=== PATIENT | male | born 1980 | race Caucasian/White ===

== ENCOUNTER 2019-12-02 11:49 | Emergency (ER) | payer BC ==
[2019-12-02] MEDS ORDERED: cefTRIAXone 250 MG in Lidocaine 1% 1 ML IM ONE (12:10)
--- NOTE | 2019-12-02 12:11 | EDM.PDOC ---
ED HPI GENERAL MEDICAL PROBLEM - General Stated Complaint: EXPOSURE Time Seen by Provider: 12/02/19 12:09 Source of Information: Reports: Patient History Limitations: Reports: No Limitations - History of Present Illness INITIAL COMMENTS - FREE TEXT/NARRATIVE: Family is called in by hospital for meningitis prophylaxis per recommendation of infectious disease doctor at [facility]. He has no other complaints. Family lost their son last night due to sepsis. Onset: Today Improves with: Reports: None Worsens with: Reports: None Associated Symptoms: Reports: No Other Symptoms ED ROS GENERAL - Review of Systems Review Of Systems: Comprehensive ROS is negative, except as noted in HPI. ED EXAM, GENERAL - Physical Exam Exam: See Below General Appearance: Alert Head: Atraumatic, Normocephalic Neck: Normal Inspection Respiratory/Chest: No Respiratory Distress Neurological: Alert Psychiatric: Depressed Mood Skin Exam: Normal Color Course - Orders/Labs/Meds Meds: Medications Discontinued Medications Generic Name Dose Route Start Last Admin Trade Name Freq PRN Reason Stop Dose Admin Ceftriaxone Sodium 250 mg/ 1 mls @ 1 mls/sec 12/02/19 12:10 Lidocaine HCl IM 12/02/19 12:11 ONETIME ONE - Re-Assessments/Exams Free Text/Narrative Re-Assessment/Exam: 12/02/19 12:26 Patient given a shot of Rocephin 125 mg IM. Departure - Departure Time of Disposition: 12:27 Disposition: Home, Self-Care 01 Condition: Good Clinical Impression: Meningitis contact - Discharge Information Referrals: PCP,Unobtain [Primary Care Provider] - Forms: ED Department Discharge Sepsis Event Note - Focused Exam Date Exam was Performed: 12/02/19 Time Exam was Performed: 12:25
== END 2019-12-02 12:58 | disposition home or self-care (01) ==
LOC: MW.ED 11:49
DX: Z20.811 Contact with and (suspected) exposure to meningococcus (principal)
CPT/HCPCS: 96372; 99283; J0696; J2001; 99282

== ENCOUNTER 2020-08-16 17:41 | Observation (INO) | payer BC, OTHER ==
[2020-08-16] MEDS ORDERED: Sodium Chloride 0.9% 1,000 ML IV ONE (18:00)
--- NOTE | 2020-08-16 18:15 | EDM.PDOC ---
ED HPI GENERAL MEDICAL PROBLEM - General Chief Complaint: Fever Stated Complaint: FEVER NOT BREAKING Time Seen by Provider: 08/16/20 17:53 Source of Information: Reports: Patient History Limitations: Reports: No Limitations - History of Present Illness INITIAL COMMENTS - FREE TEXT/NARRATIVE: HISTORY AND PHYSICAL: History of present illness: Patient is a 40-year-old male who presents to the ED today with concern of fever over the last 5 days and general body aches, and states that he felt like he was weak before coming to the ED. patient states his T-max today was 102.5 and states he has since taken ibuprofen. Patient states that he has taken 800 mg of ibuprofen a few hours ago and has not been able to get his fever down. Other than a fever and generalized body aches, patient denies any associated symptoms. Patient states that today he has felt weak and tired. Patient denies any health history. Patient denies chest pain, shortness of breath, or cough. Denies headache, neck stiff ness, change in vision, syncope, or near syncope. Denies nausea, vomiting, abdominal pain, diarrhea, constipation, or dysuria. Has not noted any blood in urine or stool. Patient has been eating and drinking appropriately. Review of systems: As per history of present illness and below otherwise all systems reviewed and negative. Past medical history: As per history of present illness and as reviewed below otherwise noncontributory. Surgical history: As per history of present illness and as reviewed below otherwise noncontributory. Social history: See social history for further information Family history: As per history of present illness and as reviewed below otherwise noncontributory. Physical exam: General: Patient is alert, oriented, and in no acute distress. Patient sitting comfortably on exam table, tired appearing. HEENT: Atraumatic, normocephalic, pupils equal and reactive bilaterally, negative for conjunctival pallor or scleral icterus, mucous membranes moist, TMs normal bilaterally, throat clear, neck supple, nontender, trachea midline. No drooling or trismus noted. No meningeal signs. No hot potato voice noted. Lungs: Patient speaking clearly without breathlessness, no wheezing or stridor, no accessory muscle use or respiratory distress. Auscultation deferred due to current COV-ID 19 outbreak. Heart: Auscultation deferred due to current COV-ID 19 outbreak. Abdomen: Soft, nondistended Pelvis: Stable nontender. Genitourinary: Deferred. Rectal: Deferred. Skin: Intact, warm, dry. No lesions or rashes noted. Extremities: Atraumatic, negative for cords or calf pain. Neurovascular unremarkable. Neuro: Awake, alert, oriented. Cranial nerves II through XII unremarkable. Cerebellum unremarkable. Motor and sensory unremarkable throughout. Exam nonfocal. Notes: Discussed importance for follow-up with primary care provider. Signs and symptoms that would prompt return to the ED thoroughly discussed with patient. Voices understanding and is agreeable to plan of care. Denies any further questions or concerns at this time. Diagnostics: CBC, CMP, UA, EKG, CXR, Trop, COVID, influenza Therapeutics: NS Prescription: None Impression: Fever, unspecified Plan: 1. Continue to alternate ibuprofen and Tylenol as directed for fevers and discomfort. 2. Follow-up with a primary care provider as discussed. Return to the ED as needed and as discussed. Definitive disposition and diagnosis as appropriate pending reevaluation and review of above. - Related Data Allergies Allergy/AdvReac Type Severity Reaction Status Date / Time No Known Allergies Allergy Verified 08/16/20 17:54 Home Meds: Home Meds . [No Known Home Meds] 12/02/19 [History] Past Medical History - Past Health History Medical/Surgical History: Denies Medical/Surgical History HEENT History: Reports: None Cardiovascular History: Reports: None Respiratory History: Reports: None Gastrointestinal History: Reports: None Genitourinary History: Reports: None Neurological History: Reports: None Psychiatric History: Reports: None Endocrine/Metabolic History: Reports: None Hematologic History: Reports: None Immunologic History: Reports: None Oncologic (Cancer) History: Reports: None Dermatologic History: Reports: None - Infectious Disease History Infectious Disease History: Reports: Chicken Pox - Past Surgical History Head Surgeries/Procedures: Reports: None Musculoskeletal Surgical History: Reports: Other (See Below) Other Musculoskeletal Surgeries/Procedures:: Back Surgery Social & Family History - Family History Family Medical History: Noncontributory - Tobacco Use Smoking Status *Q: Never Smoker - Caffeine Use Caffeine Use: Reports: None - Recreational Drug Use Recreational Drug Use: No ED ROS GENERAL - Review of Systems Review Of Systems: Comprehensive ROS is negative, except as noted in HPI. ED EXAM, GENERAL - Physical Exam Exam: See Below (see dictation) Course - Vital Signs Last Recorded V/S: Last Vital Signs Temp 96.2 F L 08/16/20 17:54 Pulse 86 08/16/20 19:52 Resp 17 08/16/20 19:52 BP 115/84 08/16/20 19:52 Pulse Ox 96 08/16/20 19:52 - Orders/Labs/Meds Orders: Active Orders 24 hr Category Date Time Status EKG Documentation Completion [RC] STAT Care 08/16/20 18:03 Active CORONAVIRUS COVID-19 PCR PHL Stat Lab 08/16/20 18:30 Received CULTURE BLOOD [BC] Stat Lab 08/16/20 18:24 Received CULTURE BLOOD [BC] Stat Lab 08/16/20 19:10 Received Blood Culture x2 Reflex Set [OM.PC] Stat Oth 08/16/20 18:50 Ordered Isolation [COMM] Routine Oth 08/16/20 19:16 Active Labs: Laboratory Tests 08/16/20 08/16/20 08/16/20 Range/Units 18:24 18:24 18:30 WBC (4.0-11.0) K/uL RBC (4.50-5.90) M/uL Hgb (13.0-17.0) g/dL Hct (38.0-50.0) % MCV (80.0-98.0) fL MCH (27.0-32.0) pg MCHC (31.0-37.0) g/dL RDW Std Deviation (28.0-62.0) fl RDW Coeff of Jose Luis (11.0-15.0) % Plt Count (150-400) K/uL MPV (7.40-12.00) fL Neut % (Auto) (48.0-80.0) % Lymph % (Auto) (16.0-40.0) % Green % (Auto) (0.0-15.0) % Eos % (Auto) (0.0-7.0) % Baso % (Auto) (0.0-1.5) % Neut # (Auto) (1.4-5.7) K/uL Lymph # (Auto) (0.6-2.4) K/uL Green # (Auto) (0.0-0.8) K/uL Eos # (Auto) (0.0-0.7) K/uL Baso # (Auto) (0.0-0.1) K/uL Nucleated RBC % /100WBC Nucleated RBCs # K/uL Lactate 1.8 (0.20-2.00) mmol/L Sodium 137 (136-148) mmol/L Potassium 4.1 (3.5-5.1) mmol/L Chloride 102 (98-107) mmol/L Carbon Dioxide 26.1 (21.0-32.0) mmol/L BUN 10 (7.0-18.0) mg/dL Creatinine 1.3 (0.8-1.3) mg/dL Est Cr Clr Drug Dosing 82.91 mL/min Estimated GFR (MDRD) > 60.0 ml/min Glucose 128 H (74-106) mg/dL Calcium 8.6 (8.5-10.1) mg/dL Total Bilirubin 0.4 (0.2-1.0) mg/dL AST 65 H (15-37) IU/L ALT 146 H (14-63) IU/L Alkaline Phosphatase 86 (46-116) U/L Troponin I < 0.050 (0.000-0.056) ng/mL Total Protein 7.5 (6.4-8.2) g/dL Albumin 3.9 (3.4-5.0) g/dL Globulin 3.6 (2.6-4.0) g/dL Albumin/Globulin Ratio 1.1 (0.9-1.6) Urine Color Urine Appearance Urine pH (5.0-8.0) Ur Specific Linch (1.001-1.035) Urine Protein (NEGATIVE) mg/dL Urine Glucose (UA) (NEGATIVE) mg/dL Urine Ketones (NEGATIVE) mg/dL Urine Occult Blood (NEGATIVE) Urine Nitrite (NEGATIVE) Urine Bilirubin (NEGATIVE) Urine Ictotest Urine Urobilinogen (<2.0) EU/dL Ur Leukocyte Esterase (NEGATIVE) U Hyaline Cast (Auto) (0-2/LPF) Urine RBC (0-2/HPF) Urine WBC (0-5/HPF) Ur Epithelial Cells (NONE-FEW) Urine Bacteria (NEGATIVE) Fine Granular Casts (NEGATIVE) Urine Mucus (NONE-MOD) SARS CoV-2 RNA Rapid RIYA NEGATIVE (NEGATIVE) 08/16/20 08/16/20 Range/Units 18:43 19:40 WBC 5.30 (4.0-11.0) K/uL RBC 5.00 (4.50-5.90) M/uL Hgb 14.3 (13.0-17.0) g/dL Hct 41.3 (38.0-50.0) % MCV 82.6 (80.0-98.0) fL MCH 28.6 (27.0-32.0) pg MCHC 34.6 (31.0-37.0) g/dL RDW Std Deviation 36.3 (28.0-62.0) fl RDW Coeff of Jose Luis 12 (11.0-15.0) % Plt Count 184 (150-400) K/uL MPV 10.00 (7.40-12.00) fL Neut % (Auto) 64.1 (48.0-80.0) % Lymph % (Auto) 20.8 (16.0-40.0) % Green % (Auto) 14.9 (0.0-15.0) % Eos % (Auto) 0.2 (0.0-7.0) % Baso % (Auto) 0.0 (0.0-1.5) % Neut # (Auto) 3.4 (1.4-5.7) K/uL Lymph # (Auto) 1.1 (0.6-2.4) K/uL Green # (Auto) 0.8 (0.0-0.8) K/uL Eos # (Auto) 0.0 (0.0-0.7) K/uL Baso # (Auto) 0.0 (0.0-0.1) K/uL Nucleated RBC % 0.0 /100WBC Nucleated RBCs # 0 K/uL Lactate (0.20-2.00) mmol/L Sodium (136-148) mmol/L Potassium (3.5-5.1) mmol/L Chloride (98-107) mmol/L Carbon Dioxide (21.0-32.0) mmol/L BUN (7.0-18.0) mg/dL Creatinine (0.8-1.3) mg/dL Est Cr Clr Drug Dosing mL/min Estimated GFR (MDRD) ml/min Glucose (74-106) mg/dL Calcium (8.5-10.1) mg/dL Total Bilirubin (0.2-1.0) mg/dL AST (15-37) IU/L ALT (14-63) IU/L Alkaline Phosphatase (46-116) U/L Troponin I (0.000-0.056) ng/mL Total Protein (6.4-8.2) g/dL Albumin (3.4-5.0) g/dL Globulin (2.6-4.0) g/dL Albumin/Globulin Ratio (0.9-1.6) Urine Color DARK YELLOW Urine Appearance SLT CLOUDY Urine pH 6.0 (5.0-8.0) Ur Specific Linch >= 1.030 (1.001-1.035) Urine Protein 100 H (NEGATIVE) mg/dL Urine Glucose (UA) NEGATIVE (NEGATIVE) mg/dL Urine Ketones TRACE H (NEGATIVE) mg/dL Urine Occult Blood NEGATIVE (NEGATIVE) Urine Nitrite NEGATIVE (NEGATIVE) Urine Bilirubin SMALL H (NEGATIVE) Urine Ictotest NEGATIVE Urine Urobilinogen 1.0 (<2.0) EU/dL Ur Leukocyte Esterase NEGATIVE (NEGATIVE) U Hyaline Cast (Auto) 0-1 (0-2/LPF) Urine RBC 0-1 (0-2/HPF) Urine WBC 2-5 (0-5/HPF) Ur Epithelial Cells FEW (NONE-FEW) Urine Bacteria FEW (NEGATIVE) Fine Granular Casts 0-1 (NEGATIVE) Urine Mucus HEAVY (NONE-MOD) SARS CoV-2 RNA Rapid RIYA (NEGATIVE) Meds: Medications Discontinued Medications Generic Name Dose Route Start Last Admin Trade Name Christian PRN Reason Stop Dose Admin Sodium Chloride 1,000 mls @ 999 mls/hr 08/16/20 18:00 08/16/20 18:26 Normal Saline IV 08/16/20 19:00 999 mls/hr BOLUS ONE Administration Departure - Departure Time of Disposition: 20:38 Disposition: Home, Self-Care 01 Clinical Impression: Fever Qualifiers: Fever type: unspecified Qualified Code(s): R50.9 - Fever, unspecified - Discharge Information Referrals: Mp Trinh MD [Primary Care Provider] - Forms: ED Department Discharge Additional Instructions: The following information is given to patients seen in the emergency department who are being discharged to home. This information is to outline your options for follow-up care. We provide all patients seen in our emergency department with a follow-up referral. The need for follow-up, as well as the timing and circumstances, are variable depending upon the specifics of your emergency department visit. If you don't have a primary care physician on staff, we will provide you with a referral. We always advise you to contact your personal physician following an emergency department visit to inform them of the circumstance of the visit and for follow-up with them and/or the need for any referrals to a consulting specialist. The emergency department will also refer you to a specialist when appropriate. This referral assures that you have the opportunity for follow-up care with a specialist. All of these measure are taken in an effort to provide you with optimal care, which includes your follow-up. Under all circumstances we always encourage you to contact your private physician who remains a resource for coordinating your care. When calling for follow-up care, please make the office aware that this follow-up is from your recent emergency room visit. If for any reason you are refused follow-up, please contact the [facility] Emergency Department at and asked to speak to the emergency department charge nurse. [facility] [address] [place] [address] [id number] 1. Continue to alternate ibuprofen and Tylenol as directed for fevers and discomfort. 2. Follow-up with a primary care provider as discussed. Return to the ED as needed and as discussed. Sepsis Event Note (ED) - Evaluation Sepsis Screening Result: No Definite Risk - Focused Exam Vital Signs: Vital Signs Temp Pulse Resp BP Pulse Ox 08/16/20 19:52 86 17 115/84 96 08/16/20 17:54 96.2 F L 85 18 120/72 94 L - My Orders Last 24 Hours: My Active Orders 08/16/20 18:03 EKG Documentation Completion [RC] STAT 08/16/20 18:24 CULTURE BLOOD [BC] Stat 08/16/20 18:30 CORONAVIRUS COVID-19 PCR PHL Stat 08/16/20 18:50 Blood Culture x2 Reflex Set [OM.PC] Stat 08/16/20 19:10 CULTURE BLOOD [BC] Stat 08/16/20 19:16 Isolation [COMM] Routine - Assessment/Plan Last 24 Hours: My Active Orders 08/16/20 18:03 EKG Documentation Completion [RC] STAT 08/16/20 18:24 CULTURE BLOOD [BC] Stat 08/16/20 18:30 CORONAVIRUS COVID-19 PCR PHL Stat 08/16/20 18:50 Blood Culture x2 Reflex Set [OM.PC] Stat 08/16/20 19:10 CULTURE BLOOD [BC] Stat 08/16/20 19:16 Isolation [COMM] Routine
--- NOTE | 2020-08-16 19:01 | CR ---
INDICATION: Near syncope today. TECHNIQUE: Chest 1 view COMPARISON: None FINDINGS: Cardiovascular and mediastinum: Heart size and vasculature are normal in caliber and appearance. Lungs and pleural spaces: Lungs are clear. No sign of infiltrate or mass. No sign of pleural effusion. No pneumothorax. Bones and soft tissues: No significant findings. IMPRESSION: No acute findings. Dictated by Saul Oro MD @ Aug 16 2020 7:00PM Signed by Dr. Saul Oro @ Aug 16 2020 7:00PM
[2020-08-16 19:07] LABS: BLOOD UREA NITROGEN,BUN 10 mg/dL (7.0-18.0); CARBON DIOXIDE,CO2 26.1 mmol/L (21.0-32.0); CHLORIDE,CL 102 mmol/L (98-107); GLUCOSE RANDOM 128 mg/dL (74-106); POTASSIUM,K 4.1 mmol/L (3.5-5.1); SODIUM,NA 137 mmol/L (136-148)
[2020-08-16] MEDS ORDERED: Acetaminophen 500 MG Tab PO ONE (20:49)
[2020-08-16] MEDS ORDERED: Albuterol/Ipratropium 3.0-0.5 MG/3 ML Neb Soln NEB PRN (21:04)
[2020-08-16] MEDS ORDERED: Acetaminophen 325 MG Tab PO PRN (21:04)
[2020-08-16 21:36] LABS: HEMOGLOBIN A1C 5.8 % (4.5-6.2)
--- NOTE | 2020-08-16 23:19 | PCM.HP.2 ---
H&P History of Present Illness - General Date of Service: 08/16/20 Admit Problem/Dx: Admission Diagnosis/Problem Admission Diagnosis/Problem Syncope - History of Present Illness Initial Comments - Free Text/Narative: Patient is a 40-year-old male who presents to the ED today with concern of fevers over the last 5 days and general body aches, and states that he felt like he was weak before coming to the ED. patient reports T-max today was 102.7 and states he has since taken ibuprofen which gives him relief for sometime. Patient states that he has taken 800 mg of ibuprofen a few hours ago. States his fevers and sweats wake him up from sleep.Other than a fever and generalized body aches, patient denies any associated symptoms. Patient states that today he has felt weak and tired. Patient denies any health history. Patients blood work looked normal, later he endorsed having a pre- syncopal episode just prior to coming to ER. trop was negative, EKG unremarkable. Off note , patients son from reported pneumococcal meningitis in November and he was anxious stating fevers scared him. Patient was admitted for generalized weakness and possible pre-syncope - Related Data Allergies/Adverse Reactions: Allergies Allergy/AdvReac Type Severity Reaction Status Date / Time No Known Allergies Allergy Verified 08/16/20 17:54 Home Medications: Home Meds . [No Known Home Meds] 12/02/19 [History] Past Medical History - Past Health History Medical/Surgical History: Denies Medical/Surgical History HEENT History: Reports: None Cardiovascular History: Reports: None Respiratory History: Reports: None Gastrointestinal History: Reports: None Genitourinary History: Reports: None Neurological History: Reports: None Psychiatric History: Reports: None Endocrine/Metabolic History: Reports: None Hematologic History: Reports: None Immunologic History: Reports: None Oncologic (Cancer) History: Reports: None Dermatologic History: Reports: None - Infectious Disease History Infectious Disease History: Reports: Chicken Pox - Past Surgical History Head Surgeries/Procedures: Reports: None Musculoskeletal Surgical History: Reports: Other (See Below) Other Musculoskeletal Surgeries/Procedures:: Back Surgery Social & Family History - Family History Family Medical History: Noncontributory - Tobacco Use Smoking Status *Q: Never Smoker - Caffeine Use Caffeine Use: Reports: None - Recreational Drug Use Recreational Drug Use: No H&P Review of Systems - Review of Systems: Review Of Systems: See Below General: Reports: Fever, Malaise, Weakness, Fatigue Pulmonary: Denies: Shortness of Breath, Wheezing, Pleuritic Chest Pain Cardiovascular: Denies: Chest Pain, Palpitations, Dyspnea on Exertion, Orthopnea Gastrointestinal: Denies: Abdominal Pain, Anorexia, Black Stool, Bloody Stool, Constipation Genitourinary: Denies: Dysuria, Frequency, Burning, Urgency Musculoskeletal: Denies: Neck Pain, Shoulder Pain, Arm Pain Skin: Denies: Cyanosis, Jaundice, Mottled, Pallor, Diaphoresis Psychiatric: Reports: Anxiety. Denies: Confusion, Agitation, Cravings Exam - Exam Exam: See Below - Vital Signs Vital Signs: Last Vital Signs Temp 36.2 C 08/16/20 22:00 Pulse 60 08/16/20 22:00 Resp 18 08/16/20 22:00 BP 137/77 08/16/20 22:00 Pulse Ox 96 08/16/20 22:00 Weight: 122.47 kg - Exam General: Alert, Oriented Neck: Supple, Trachea Midline Lungs: Clear to Auscultation, Normal Respiratory Effort Cardiovascular: Regular Rate, Regular Rhythm, Normal S1, Normal S2 - Patient Data Lab Results Last 24 hrs: Laboratory Results - last 24 hr 08/16/20 08/16/20 08/16/20 Range/Units 18:24 18:24 18:30 WBC (4.0-11.0) K/uL RBC (4.50-5.90) M/uL Hgb (13.0-17.0) g/dL Hct (38.0-50.0) % MCV (80.0-98.0) fL MCH (27.0-32.0) pg MCHC (31.0-37.0) g/dL RDW Std Deviation (28.0-62.0) fl RDW Coeff of Jose Luis (11.0-15.0) % Plt Count (150-400) K/uL MPV (7.40-12.00) fL Neut % (Auto) (48.0-80.0) % Lymph % (Auto) (16.0-40.0) % [place] % (Auto) (0.0-15.0) % Eos % (Auto) (0.0-7.0) % Baso % (Auto) (0.0-1.5) % Neut # (Auto) (1.4-5.7) K/uL Lymph # (Auto) (0.6-2.4) K/uL [place] # (Auto) (0.0-0.8) K/uL Eos # (Auto) (0.0-0.7) K/uL Baso # (Auto) (0.0-0.1) K/uL Nucleated RBC % /100WBC Nucleated RBCs # K/uL Lactate 1.8 (0.20-2.00) mmol/L Sodium 137 (136-148) mmol/L Potassium 4.1 (3.5-5.1) mmol/L Chloride 102 (98-107) mmol/L Carbon Dioxide 26.1 (21.0-32.0) mmol/L BUN 10 (7.0-18.0) mg/dL Creatinine 1.3 (0.8-1.3) mg/dL Est Cr Clr Drug Dosing 82.91 mL/min Estimated GFR (MDRD) > 60.0 ml/min Glucose 128 H (74-106) mg/dL Hemoglobin A1c (4.5-6.2) % Calcium 8.6 (8.5-10.1) mg/dL Total Bilirubin 0.4 (0.2-1.0) mg/dL AST 65 H (15-37) IU/L ALT 146 H (14-63) IU/L Alkaline Phosphatase 86 (46-116) U/L Troponin I < 0.050 (0.000-0.056) ng/mL Total Protein 7.5 (6.4-8.2) g/dL Albumin 3.9 (3.4-5.0) g/dL Globulin 3.6 (2.6-4.0) g/dL Albumin/Globulin Ratio 1.1 (0.9-1.6) Urine Color Urine Appearance Urine pH (5.0-8.0) Ur Specific [place] (1.001-1.035) Urine Protein (NEGATIVE) mg/dL Urine Glucose (UA) (NEGATIVE) mg/dL Urine Ketones (NEGATIVE) mg/dL Urine Occult Blood (NEGATIVE) Urine Nitrite (NEGATIVE) Urine Bilirubin (NEGATIVE) Urine Ictotest Urine Urobilinogen (<2.0) EU/dL Ur Leukocyte Esterase (NEGATIVE) U Hyaline Cast (Auto) (0-2/LPF) Urine RBC (0-2/HPF) Urine WBC (0-5/HPF) Ur Epithelial Cells (NONE-FEW) Urine Bacteria (NEGATIVE) Fine Granular Casts (NEGATIVE) Urine Mucus (NONE-MOD) Ethyl Alcohol mg/dL SARS CoV-2 RNA Rapid RIYA NEGATIVE (NEGATIVE) 08/16/20 08/16/20 08/16/20 Range/Units 18:43 18:43 18:43 WBC 5.30 (4.0-11.0) K/uL RBC 5.00 (4.50-5.90) M/uL Hgb 14.3 (13.0-17.0) g/dL Hct 41.3 (38.0-50.0) % MCV 82.6 (80.0-98.0) fL MCH 28.6 (27.0-32.0) pg MCHC 34.6 (31.0-37.0) g/dL RDW Std Deviation 36.3 (28.0-62.0) fl RDW Coeff of Jose Luis 12 (11.0-15.0) % Plt Count 184 (150-400) K/uL MPV 10.00 (7.40-12.00) fL Neut % (Auto) 64.1 (48.0-80.0) % Lymph % (Auto) 20.8 (16.0-40.0) % [place] % (Auto) 14.9 (0.0-15.0) % Eos % (Auto) 0.2 (0.0-7.0) % Baso % (Auto) 0.0 (0.0-1.5) % Neut # (Auto) 3.4 (1.4-5.7) K/uL Lymph # (Auto) 1.1 (0.6-2.4) K/uL [place] # (Auto) 0.8 (0.0-0.8) K/uL Eos # (Auto) 0.0 (0.0-0.7) K/uL Baso # (Auto) 0.0 (0.0-0.1) K/uL Nucleated RBC % 0.0 /100WBC Nucleated RBCs # 0 K/uL Lactate (0.20-2.00) mmol/L Sodium (136-148) mmol/L Potassium (3.5-5.1) mmol/L Chloride (98-107) mmol/L Carbon Dioxide (21.0-32.0) mmol/L BUN (7.0-18.0) mg/dL Creatinine (0.8-1.3) mg/dL Est Cr Clr Drug Dosing mL/min Estimated GFR (MDRD) ml/min Glucose (74-106) mg/dL Hemoglobin A1c 5.8 (4.5-6.2) % Calcium (8.5-10.1) mg/dL Total Bilirubin (0.2-1.0) mg/dL AST (15-37) IU/L ALT (14-63) IU/L Alkaline Phosphatase (46-116) U/L Troponin I (0.000-0.056) ng/mL Total Protein (6.4-8.2) g/dL Albumin (3.4-5.0) g/dL Globulin (2.6-4.0) g/dL Albumin/Globulin Ratio (0.9-1.6) Urine Color Urine Appearance Urine pH (5.0-8.0) Ur Specific [place] (1.001-1.035) Urine Protein (NEGATIVE) mg/dL Urine Glucose (UA) (NEGATIVE) mg/dL Urine Ketones (NEGATIVE) mg/dL Urine Occult Blood (NEGATIVE) Urine Nitrite (NEGATIVE) Urine Bilirubin (NEGATIVE) Urine Ictotest Urine Urobilinogen (<2.0) EU/dL Ur Leukocyte Esterase (NEGATIVE) U Hyaline Cast (Auto) (0-2/LPF) Urine RBC (0-2/HPF) Urine WBC (0-5/HPF) Ur Epithelial Cells (NONE-FEW) Urine Bacteria (NEGATIVE) Fine Granular Casts (NEGATIVE) Urine Mucus (NONE-MOD) Ethyl Alcohol <3 mg/dL SARS CoV-2 RNA Rapid RIYA (NEGATIVE) 08/16/20 Range/Units 19:40 WBC (4.0-11.0) K/uL RBC (4.50-5.90) M/uL Hgb (13.0-17.0) g/dL Hct (38.0-50.0) % MCV (80.0-98.0) fL MCH (27.0-32.0) pg MCHC (31.0-37.0) g/dL RDW Std Deviation (28.0-62.0) fl RDW Coeff of Jose Luis (11.0-15.0) % Plt Count (150-400) K/uL MPV (7.40-12.00) fL Neut % (Auto) (48.0-80.0) % Lymph % (Auto) (16.0-40.0) % [place] % (Auto) (0.0-15.0) % Eos % (Auto) (0.0-7.0) % Baso % (Auto) (0.0-1.5) % Neut # (Auto) (1.4-5.7) K/uL Lymph # (Auto) (0.6-2.4) K/uL [place] # (Auto) (0.0-0.8) K/uL Eos # (Auto) (0.0-0.7) K/uL Baso # (Auto) (0.0-0.1) K/uL Nucleated RBC % /100WBC Nucleated RBCs # K/uL Lactate (0.20-2.00) mmol/L Sodium (136-148) mmol/L Potassium (3.5-5.1) mmol/L Chloride (98-107) mmol/L Carbon Dioxide (21.0-32.0) mmol/L BUN (7.0-18.0) mg/dL Creatinine (0.8-1.3) mg/dL Est Cr Clr Drug Dosing mL/min Estimated GFR (MDRD) ml/min Glucose (74-106) mg/dL Hemoglobin A1c (4.5-6.2) % Calcium (8.5-10.1) mg/dL Total Bilirubin (0.2-1.0) mg/dL AST (15-37) IU/L ALT (14-63) IU/L Alkaline Phosphatase (46-116) U/L Troponin I (0.000-0.056) ng/mL Total Protein (6.4-8.2) g/dL Albumin (3.4-5.0) g/dL Globulin (2.6-4.0) g/dL Albumin/Globulin Ratio (0.9-1.6) Urine Color DARK YELLOW Urine Appearance SLT CLOUDY Urine pH 6.0 (5.0-8.0) Ur Specific [place] >= 1.030 (1.001-1.035) Urine Protein 100 H (NEGATIVE) mg/dL Urine Glucose (UA) NEGATIVE (NEGATIVE) mg/dL Urine Ketones TRACE H (NEGATIVE) mg/dL Urine Occult Blood NEGATIVE (NEGATIVE) Urine Nitrite NEGATIVE (NEGATIVE) Urine Bilirubin SMALL H (NEGATIVE) Urine Ictotest NEGATIVE Urine Urobilinogen 1.0 (<2.0) EU/dL Ur Leukocyte Esterase NEGATIVE (NEGATIVE) U Hyaline Cast (Auto) 0-1 (0-2/LPF) Urine RBC 0-1 (0-2/HPF) Urine WBC 2-5 (0-5/HPF) Ur Epithelial Cells FEW (NONE-FEW) Urine Bacteria FEW (NEGATIVE) Fine Granular Casts 0-1 (NEGATIVE) Urine Mucus HEAVY (NONE-MOD) Ethyl Alcohol mg/dL SARS CoV-2 RNA Rapid RIYA (NEGATIVE) Result Diagrams: 08/16/20 18:43 08/16/20 18:24 Mustapha Results Last 24 hrs: Microbiology 08/16/20 19:46 Influenza Type A Antigen Screen - Final Nasopharyngeal Swab NEGATIVE INFLUENZA A VIRUS AG REFERENCE RANGE: NEGATIVE Influenza Type B Antigen Screen - Final NEGATIVE INFLUENZA B VIRUS AG REFERENCE RANGE: NEGATIVE Sepsis Event Note - Evaluation Sepsis Screening Result: No Definite Risk - Focused Exam Vital Signs: Vital Signs Temp Temp Temp Pulse Resp BP Pulse Ox 08/16/20 22:00 36.2 C 60 18 137/77 96 08/16/20 21:38 37.2 C 69 17 106/61 96 08/16/20 20:55 37.6 C 08/16/20 19:52 86 17 115/84 96 08/16/20 17:54 35.7 C L 85 18 120/72 94 L - Problem List (1) Syncope SNOMED Code(s): 039632283 ICD Code: R55 - SYNCOPE AND COLLAPSE Status: Acute Current Visit: Yes (2) Fever SNOMED Code(s): 129788976 ICD Code: R50.9 - FEVER, UNSPECIFIED Status: Acute Current Visit: Yes Qualifiers: Fever type: unspecified Qualified Code(s): R50.9 - Fever, unspecified Problem List Initiated/Reviewed/Updated: Yes Orders Last 24hrs: Active Orders 24 hr Category Date Time Status Admission Status [Patient Status] [ADT] Stat ADT 08/16/20 21:03 Active Ambulate [RC] ASDIRECTED Care 08/16/20 21:04 Active Antiembolic Devices [RC] PER UNIT ROUTINE Care 08/16/20 21:07 Active Oxygen Therapy [RC] PRN Care 08/16/20 21:04 Active RT Aerosol Therapy [RC] ASDIRECTED Care 08/16/20 21:07 Active Telemetry Monitoring [Cardiac Monitoring] [RC] . Care 08/16/20 21:33 Active DIRECTED VTE/DVT Education [RC] PER UNIT ROUTINE Care 08/16/20 21:04 Active Vital Signs [RC] Q4H Care 08/16/20 21:04 Active Regular Diet [DIET] Diet 08/16/20 Dinner Active CORONAVIRUS COVID-19 PCR PHL Stat Lab 08/16/20 18:30 Received CULTURE BLOOD [BC] Stat Lab 08/16/20 18:24 Received CULTURE BLOOD [BC] Stat Lab 08/16/20 19:10 Received TROPONIN I [CHEM] Stat Lab 08/16/20 22:55 Received Acetaminophen [TylenoL] Med 08/16/20 21:04 Active 650 mg PO Q4H PRN Albuterol/Ipratropium [DuoNeb 3.0-0.5 MG/3 ML] Med 08/16/20 21:04 Active 3 ml NEB Q4HRRT PRN Blood Culture x2 Reflex Set [OM.PC] Stat Oth 08/16/20 18:50 Ordered Isolation [COMM] Routine Oth 08/16/20 19:16 Active Sequential Compression Device [OM.PC] Per Unit Routine Oth 08/16/20 21:04 Ordered Resuscitation Status Routine Resus Stat 08/16/20 21:04 Ordered Medication Orders Acetaminophen (Tylenol) 650 mg PO Q4H PRN PRN Reason: Pain (Mild 1-3)/fever Albuterol/Ipratropium (Duoneb 3.0-0.5 Mg/3 Ml) 3 ml NEB Q4HRRT PRN PRN Reason: Shortness Of Breath/wheezing Assessment/Plan Comment:: 40 y/o M admited for reported fever, weakness and pre-syncope Trop negative, EKG unremarkable Labs look benign Low grade fever in ER Blood cultures obtained Will admit to observation overnight, trend another troponin Monitor for fevers SCD for dvt ppx
[2020-08-17] MEDS ORDERED: Sodium Chloride 0.9% 1,000 ML IV SCH (11:00)
--- NOTE | 2020-08-17 16:46 | PCM.DCSUM1 ---
<Rc Jones - Last Filed: 08/17/20 16:46> Discharge Summary - Hospital Course Free Text/Narrative:: 40-year-old male admitted for weakness, dizziness, pre-syncopal episode. He presented to the ED with dizziness, body aches, weakness, intermittent fevers and sweats at night. Symptoms have persisted for 5 days. Patient had one pre- syncopal episode prior to coming to the ED. Patient states that his son from a pneumococcal meningitis infection in November and he is worried that he might have something similar. Troponin were negative, EKG unremarkable, lab work was within normal limits. Patient had no concerns overnight and this morning reported one episode of sweating and feeling warm. During this episode a temperature was measured which was 100.2F. Patient denies SOB, headaches, chills, nausea, weakness during admission. Patient discharged home with tylenol 650mg Q6hr. - Discharge Data Discharge Date: 08/17/20 Discharge Disposition: Home, Self-Care 01 Condition: Good - Referral to Home Health Primary Care Physician: Mp Trinh MD - Patient Instructions Notify Provider of: Fever Other/Special Instructions: May take #1 Tab Tylenol every 6 hours for temperater greater than 100.4 - Discharge Plan Prescriptions/Med Rec: Acetaminophen [Tylenol] 650 mg PO Q6HR PRN #12 tablet PRN Reason: Fever Home Medications: Home Meds Acetaminophen [Tylenol] 650 mg PO Q6HR PRN #12 tablet 08/17/20 [Rx] Patient Handouts: Acetaminophen tablets or caplets, Fever, Adult, [id number] Referrals: Mp Trinh MD [Primary Care Provider] - - Discharge Summary/Plan Comment DC Time >30 min.: No - Review of Systems General: Denies: Fever, Weakness, Chills Pulmonary: Denies: Shortness of Breath, Pleuritic Chest Pain Cardiovascular: Denies: Chest Pain, Palpitations, Dyspnea on Exertion Gastrointestinal: Denies: Abdominal Pain, Diarrhea, Nausea Musculoskeletal: Denies: Neck Pain, Shoulder Pain Neurological: Denies: Confusion, Dizziness, Headache - Patient Data Vitals - Most Recent: Last Vital Signs Temp 97.0 F 08/17/20 11:58 Pulse 62 08/17/20 11:58 Resp 14 08/17/20 11:58 BP 132/75 08/17/20 11:58 Pulse Ox 97 08/17/20 11:58 Orthostatic Blood Pressure [ 124/83 Standing] Orthostatic Blood Pressure [ 138/83 Sitting] Orthostatic Blood Pressure [ 122/72 Supine] Weight - Most Recent: 122.47 kg I&O - Last 24 hours: Intake & Output 08/17/20 08/17/20 08/17/20 06:59 14:59 22:59 Intake Total 1300 Output Total 900 Balance 400 Lab Results - Last 24 hrs: Laboratory Results - last 24 hr 08/16/20 08/16/20 08/16/20 Range/Units 18:24 18:24 18:30 WBC (4.0-11.0) K/uL RBC (4.50-5.90) M/uL Hgb (13.0-17.0) g/dL Hct (38.0-50.0) % MCV (80.0-98.0) fL MCH (27.0-32.0) pg MCHC (31.0-37.0) g/dL RDW Std Deviation (28.0-62.0) fl RDW Coeff of Jose Luis (11.0-15.0) % Plt Count (150-400) K/uL MPV (7.40-12.00) fL Neut % (Auto) (48.0-80.0) % Lymph % (Auto) (16.0-40.0) % [place] % (Auto) (0.0-15.0) % Eos % (Auto) (0.0-7.0) % Baso % (Auto) (0.0-1.5) % Neut # (Auto) (1.4-5.7) K/uL Lymph # (Auto) (0.6-2.4) K/uL [place] # (Auto) (0.0-0.8) K/uL Eos # (Auto) (0.0-0.7) K/uL Baso # (Auto) (0.0-0.1) K/uL Nucleated RBC % /100WBC Nucleated RBCs # K/uL Lactate 1.8 (0.20-2.00) mmol/L Sodium 137 (136-148) mmol/L Potassium 4.1 (3.5-5.1) mmol/L Chloride 102 (98-107) mmol/L Carbon Dioxide 26.1 (21.0-32.0) mmol/L BUN 10 (7.0-18.0) mg/dL Creatinine 1.3 (0.8-1.3) mg/dL Est Cr Clr Drug Dosing 82.91 mL/min Estimated GFR (MDRD) > 60.0 ml/min Glucose 128 H (74-106) mg/dL Hemoglobin A1c (4.5-6.2) % Calcium 8.6 (8.5-10.1) mg/dL Total Bilirubin 0.4 (0.2-1.0) mg/dL AST 65 H (15-37) IU/L ALT 146 H (14-63) IU/L Alkaline Phosphatase 86 (46-116) U/L Troponin I < 0.050 (0.000-0.056) ng/mL Total Protein 7.5 (6.4-8.2) g/dL Albumin 3.9 (3.4-5.0) g/dL Globulin 3.6 (2.6-4.0) g/dL Albumin/Globulin Ratio 1.1 (0.9-1.6) Urine Color Urine Appearance Urine pH (5.0-8.0) Ur Specific [place] (1.001-1.035) Urine Protein (NEGATIVE) mg/dL Urine Glucose (UA) (NEGATIVE) mg/dL Urine Ketones (NEGATIVE) mg/dL Urine Occult Blood (NEGATIVE) Urine Nitrite (NEGATIVE) Urine Bilirubin (NEGATIVE) Urine Ictotest Urine Urobilinogen (<2.0) EU/dL Ur Leukocyte Esterase (NEGATIVE) U Hyaline Cast (Auto) (0-2/LPF) Urine RBC (0-2/HPF) Urine WBC (0-5/HPF) Ur Epithelial Cells (NONE-FEW) Urine Bacteria (NEGATIVE) Fine Granular Casts (NEGATIVE) Urine Mucus (NONE-MOD) Ethyl Alcohol mg/dL SARS CoV-2 RNA Rapid RIYA NEGATIVE (NEGATIVE) 08/16/20 08/16/20 08/16/20 Range/Units 18:43 18:43 18:43 WBC 5.30 (4.0-11.0) K/uL RBC 5.00 (4.50-5.90) M/uL Hgb 14.3 (13.0-17.0) g/dL Hct 41.3 (38.0-50.0) % MCV 82.6 (80.0-98.0) fL MCH 28.6 (27.0-32.0) pg MCHC 34.6 (31.0-37.0) g/dL RDW Std Deviation 36.3 (28.0-62.0) fl RDW Coeff of [place] Luis 12 (11.0-15.0) % Plt Count 184 (150-400) K/uL MPV 10.00 (7.40-12.00) fL Neut % (Auto) 64.1 (48.0-80.0) % Lymph % (Auto) 20.8 (16.0-40.0) % [place] % (Auto) 14.9 (0.0-15.0) % Eos % (Auto) 0.2 (0.0-7.0) % Baso % (Auto) 0.0 (0.0-1.5) % Neut # (Auto) 3.4 (1.4-5.7) K/uL Lymph # (Auto) 1.1 (0.6-2.4) K/uL [place] # (Auto) 0.8 (0.0-0.8) K/uL Eos # (Auto) 0.0 (0.0-0.7) K/uL Baso # (Auto) 0.0 (0.0-0.1) K/uL Nucleated RBC % 0.0 /100WBC Nucleated RBCs # 0 K/uL Lactate (0.20-2.00) mmol/L Sodium (136-148) mmol/L Potassium (3.5-5.1) mmol/L Chloride (98-107) mmol/L Carbon Dioxide (21.0-32.0) mmol/L BUN (7.0-18.0) mg/dL Creatinine (0.8-1.3) mg/dL Est Cr Clr Drug Dosing mL/min Estimated GFR (MDRD) ml/min Glucose (74-106) mg/dL Hemoglobin A1c 5.8 (4.5-6.2) % Calcium (8.5-10.1) mg/dL Total Bilirubin (0.2-1.0) mg/dL AST (15-37) IU/L ALT (14-63) IU/L Alkaline Phosphatase (46-116) U/L Troponin I (0.000-0.056) ng/mL Total Protein (6.4-8.2) g/dL Albumin (3.4-5.0) g/dL Globulin (2.6-4.0) g/dL Albumin/Globulin Ratio (0.9-1.6) Urine Color Urine Appearance Urine pH (5.0-8.0) Ur Specific [place] (1.001-1.035) Urine Protein (NEGATIVE) mg/dL Urine Glucose (UA) (NEGATIVE) mg/dL Urine Ketones (NEGATIVE) mg/dL Urine Occult Blood (NEGATIVE) Urine Nitrite (NEGATIVE) Urine Bilirubin (NEGATIVE) Urine Ictotest Urine Urobilinogen (<2.0) EU/dL Ur Leukocyte Esterase (NEGATIVE) U Hyaline Cast (Auto) (0-2/LPF) Urine RBC (0-2/HPF) Urine WBC (0-5/HPF) Ur Epithelial Cells (NONE-FEW) Urine Bacteria (NEGATIVE) Fine Granular Casts (NEGATIVE) Urine Mucus (NONE-MOD) Ethyl Alcohol <3 mg/dL SARS CoV-2 RNA Rapid RIYA (NEGATIVE) 08/16/20 08/16/20 Range/Units 19:40 22:55 WBC (4.0-11.0) K/uL RBC (4.50-5.90) M/uL Hgb (13.0-17.0) g/dL Hct (38.0-50.0) % MCV (80.0-98.0) fL MCH (27.0-32.0) pg MCHC (31.0-37.0) g/dL RDW Std Deviation (28.0-62.0) fl RDW Coeff of Jose Luis (11.0-15.0) % Plt Count (150-400) K/uL MPV (7.40-12.00) fL Neut % (Auto) (48.0-80.0) % Lymph % (Auto) (16.0-40.0) % [place] % (Auto) (0.0-15.0) % Eos % (Auto) (0.0-7.0) % Baso % (Auto) (0.0-1.5) % Neut # (Auto) (1.4-5.7) K/uL Lymph # (Auto) (0.6-2.4) K/uL [place] # (Auto) (0.0-0.8) K/uL Eos # (Auto) (0.0-0.7) K/uL Baso # (Auto) (0.0-0.1) K/uL Nucleated RBC % /100WBC Nucleated RBCs # K/uL Lactate (0.20-2.00) mmol/L Sodium (136-148) mmol/L Potassium (3.5-5.1) mmol/L Chloride (98-107) mmol/L Carbon Dioxide (21.0-32.0) mmol/L BUN (7.0-18.0) mg/dL Creatinine (0.8-1.3) mg/dL Est Cr Clr Drug Dosing mL/min Estimated GFR (MDRD) ml/min Glucose (74-106) mg/dL Hemoglobin A1c (4.5-6.2) % Calcium (8.5-10.1) mg/dL Total Bilirubin (0.2-1.0) mg/dL AST (15-37) IU/L ALT (14-63) IU/L Alkaline Phosphatase (46-116) U/L Troponin I < 0.050 (0.000-0.056) ng/mL Total Protein (6.4-8.2) g/dL Albumin (3.4-5.0) g/dL Globulin (2.6-4.0) g/dL Albumin/Globulin Ratio (0.9-1.6) Urine Color DARK YELLOW Urine Appearance SLT CLOUDY Urine pH 6.0 (5.0-8.0) Ur Specific [place] >= 1.030 (1.001-1.035) Urine Protein 100 H (NEGATIVE) mg/dL Urine Glucose (UA) NEGATIVE (NEGATIVE) mg/dL Urine Ketones TRACE H (NEGATIVE) mg/dL Urine Occult Blood NEGATIVE (NEGATIVE) Urine Nitrite NEGATIVE (NEGATIVE) Urine Bilirubin SMALL H (NEGATIVE) Urine Ictotest NEGATIVE Urine Urobilinogen 1.0 (<2.0) EU/dL Ur Leukocyte Esterase NEGATIVE (NEGATIVE) U Hyaline Cast (Auto) 0-1 (0-2/LPF) Urine RBC 0-1 (0-2/HPF) Urine WBC 2-5 (0-5/HPF) Ur Epithelial Cells FEW (NONE-FEW) Urine Bacteria FEW (NEGATIVE) Fine Granular Casts 0-1 (NEGATIVE) Urine Mucus HEAVY (NONE-MOD) Ethyl Alcohol mg/dL SARS CoV-2 RNA Rapid RIYA (NEGATIVE) MIKAYLA Results - Last 24 hrs: Microbiology 08/16/20 19:46 Influenza Type A Antigen Screen - Final Nasopharyngeal Swab NEGATIVE INFLUENZA A VIRUS AG REFERENCE RANGE: NEGATIVE Influenza Type B Antigen Screen - Final NEGATIVE INFLUENZA B VIRUS AG REFERENCE RANGE: NEGATIVE Med Orders - Current: Current Medications Acetaminophen (Tylenol) 650 mg PO Q4H PRN PRN Reason: Pain (Mild 1-3)/fever Last Admin: 08/17/20 10:51 Dose: 650 mg Documented by: Albuterol/Ipratropium (Duoneb 3.0-0.5 Mg/3 Ml) 3 ml NEB Q4HRRT PRN PRN Reason: Shortness Of Breath/wheezing Sodium Chloride (Normal Saline) 1,000 mls @ 125 mls/hr IV ASDIRECTED DODIE Last Admin: 08/17/20 11:16 Dose: 125 mls/hr Documented by: Discontinued Medications Acetaminophen (Tylenol Extra Strength) 1,000 mg PO ONETIME ONE Stop: 08/16/20 20:50 Last Admin: 08/16/20 20:55 Dose: 1,000 mg Documented by: Sodium Chloride (Normal Saline) 1,000 mls @ 999 mls/hr IV BOLUS ONE Stop: 08/16/20 19:00 Last Admin: 08/16/20 18:26 Dose: 999 mls/hr Documented by: - Exam General: Reports: Alert, Oriented Lungs: Reports: Clear to Auscultation, Normal Respiratory Effort Cardiovascular: Reports: Regular Rate, Regular Rhythm GI/Abdominal Exam: Soft, Non-Tender, No Distention Extremities: Normal Inspection, No Pedal Edema Psy/Mental Status: Reports: Alert <Maxwell,Hooria - Last Filed: 08/18/20 17:15> Discharge Summary - Hospital Course Free Text/Narrative:: I have seen and evaluated the patient and agree with the residents note unless specified in my note - Referral to Home Health Primary Care Physician: Mp Trinh MD - Discharge Diagnosis/Problem(s) (1) Syncope SNOMED Code(s): 138083116 ICD Code: R55 - SYNCOPE AND COLLAPSE Status: Acute (2) Fever SNOMED Code(s): 404632421 ICD Code: R50.9 - FEVER, UNSPECIFIED Status: Acute Qualifiers: Fever type: unspecified Qualified Code(s): R50.9 - Fever, unspecified - Patient Data Vitals - Most Recent: Last Vital Signs Temp 36.1 C 08/17/20 11:58 Pulse 62 08/17/20 11:58 Resp 14 08/17/20 11:58 BP 132/75 08/17/20 11:58 Pulse Ox 97 08/17/20 11:58 Orthostatic Blood Pressure [ 124/83 Standing] Orthostatic Blood Pressure [ 138/83 Sitting] Orthostatic Blood Pressure [ 122/72 Supine] Lab Results - Last 24 hrs: Laboratory Results - last 24 hr 08/16/20 Range/Units 18:30 SARS-CoV-2 (PCR) DETECTED H (NOT DETECT) MIKAYLA Results - Last 24 hrs: Microbiology 08/16/20 19:10 Aerobic Blood Culture - Preliminary Blood - Venous - Lab Draw NO GROWTH AFTER 1 DAY Anaerobic Blood Culture - Preliminary NO GROWTH AFTER 1 DAY 08/16/20 18:24 Aerobic Blood Culture - Preliminary Blood - Venous NO GROWTH AFTER 1 DAY Anaerobic Blood Culture - Preliminary NO GROWTH AFTER 1 DAY Med Orders - Current: Current Medications Discontinued Medications Acetaminophen (Tylenol Extra Strength) 1,000 mg PO ONETIME ONE Stop: 08/16/20 20:50 Last Admin: 08/16/20 20:55 Dose: 1,000 mg Documented by: Acetaminophen (Tylenol) 650 mg PO Q4H PRN PRN Reason: Pain (Mild 1-3)/fever Last Admin: 08/17/20 10:51 Dose: 650 mg Documented by: Albuterol/Ipratropium (Duoneb 3.0-0.5 Mg/3 Ml) 3 ml NEB Q4HRRT PRN PRN Reason: Shortness Of Breath/wheezing Sodium Chloride (Normal Saline) 1,000 mls @ 999 mls/hr IV BOLUS ONE Stop: 08/16/20 19:00 Last Admin: 08/16/20 18:26 Dose: 999 mls/hr Documented by: Sodium Chloride (Normal Saline) 1,000 mls @ 125 mls/hr IV ASDIRECTED DODIE Last Admin: 08/17/20 11:16 Dose: 125 mls/hr Documented by:
== END 2020-08-17 15:15 | disposition home or self-care (01) ==
LOC: MW.ED 17:41 → MW.MS 21:03
PROVIDERS: ADMIT Student in an Organized Health Care Education/Training Program; ATTEND Student in an Organized Health Care Education/Training Program
DX: U07.1 COVID-19 (principal); R55 Syncope and collapse; R53.1 Weakness
CPT/HCPCS: 36415; 71045; 80053; 80307; 81001; 83036; 83605; 84484; 85025; 87040; 87635; 87804; 93005; 96360; 99284; A9270; G0378; J7030; 99283; U0002

== ENCOUNTER 2024-08-29 06:50 | Day surgery (SDC) | payer BC ==
[~2024-08-29 06:50] MED LIST: Acetaminophen 1,000 MG in Premix Bag 1 BAG IV SCH; ceFAZolin 2 GM in Sodium Chloride 0.9% 50 ML IV ONE
[2024-08-29] MEDS ORDERED: ePHEDrine 50 MG/ML SDV IV ONE (06:51)
[2024-08-29] MEDS ORDERED: Bupivacaine 0.5% 30 ML SDV ONE (07:19)
[2024-08-29] MEDS: Pregabalin 75 MG Cap PO SCH (07:20)
[2024-08-29] MEDS: Lactated Ringers 1,000 ML IV SCH (07:25)
[2024-08-29] MEDS ORDERED: fentaNYL 250 MCG/5 ML SDV ONE ×2 (07:33→09:22)
[2024-08-29] MEDS ORDERED: Propofol 200 MG/20 ML SDV ONE (07:33)
[2024-08-29] MEDS ORDERED: Morphine 10 MG/ML SDV ONE (07:33)
[2024-08-29] MEDS ORDERED: Rocuronium Bromide 50 MG/5 ML Syringe ONE ×2 (07:33→08:52)
[2024-08-29] MEDS ORDERED: Ropivacaine 0.5% 5 MG/ML 30 ML SDV ONE (07:38)
[2024-08-29] MEDS ORDERED: Famotidine 20 MG/2 ML SDV ONE (07:40)
[2024-08-29] MEDS ORDERED: Water For Injection, Sterile 20 ML ONE (07:42)
[2024-08-29] MEDS ORDERED: Phenylephrine HCl In 0.9% NaCl 1 MG/10 ML Syringe IVPUSH PRN (07:44)
[2024-08-29] MEDS ORDERED: Naloxone 0.4 MG/ML SDV IVPUSH PRN (07:44)
[2024-08-29] MEDS ORDERED: HYDROmorphone 1 MG/ML Syringe IVPUSH PRN (07:44)
[2024-08-29] MEDS ORDERED: Metoclopramide 10 MG/2 ML SDV IVPUSH PRN (07:44)
[2024-08-29] MEDS ORDERED: Ondansetron 4 MG/2 ML SDV IVPUSH PRN (07:44)
[2024-08-29] MEDS ORDERED: fentaNYL 50 MCG/ML SDV IVPUSH PRN (07:44)
[2024-08-29] MEDS ORDERED: Morphine 2 MG/ML SYRINGE IVPUSH PRN (07:44)
[2024-08-29] MEDS ORDERED: Albuterol 0.083% 2.5 MG/3 ML Neb Soln NEB PRN (07:44)
[2024-08-29] MEDS: Famotidine 20 MG/2 ML SDV IVPUSH ONE (07:46)
[2024-08-29] MEDS ORDERED: ceFAZolin 2 GM Vial ONE (08:08)
[2024-08-29] MEDS ORDERED: Ketamine HCL/NACL, ISO-OSM 50 MG/5 ML Syringe ONE (09:23)
[2024-08-29] MEDS ORDERED: Ondansetron 4 MG/2 ML SDV ONE (09:54)
[2024-08-29] MEDS ORDERED: Sugammadex Sodium 200 MG/2 ML VIAL IV ONE (09:54)
[2024-08-29] MEDS ORDERED: Ketorolac 30 MG/ML SDV ONE (09:54)
[2024-08-29] MEDS ORDERED: Dexamethasone 4 MG/ML 5 ML MDV ONE (09:54)
[2024-08-29] MEDS ORDERED: HYDROmorphone 2 MG/ML Syringe ONE (10:06)
== END 2024-08-29 13:38 | disposition home or self-care (01) ==
LOC: MW.SDS 06:50
PROVIDERS: ATTEND Surgery
DX: K43.9 Ventral hernia without obstruction or gangrene (principal); K42.9 Umbilical hernia without obstruction or gangrene; I10 Essential (primary) hypertension; E11.9 Type 2 diabetes mellitus without complications; E78.00 Pure hypercholesterolemia, unspecified; E66.01 Morbid (severe) obesity due to excess calories; Z79.84 Long term (current) use of oral hypoglycemic drugs; Z79.85 Long-term (current) use of injectable non-insulin antidiabetic drugs; Z79.899 Other long term (current) drug therapy
CPT/HCPCS: 49593; 64488; A9270; C1781; J0665; J0690; J1100; J1885; J2270; J2405; J2704; J2795; J3010; J3490; J7120; 00840; J1171